=== PATIENT | male | born 1990 | race African-American/Black ===

== ENCOUNTER 2021-10-11 16:06 | Inpatient (IN) | payer MEDICAID, OTHER ==
[~2021-10-11] VITALS: Ht 182.9 cm; Wt 62.6 kg
[2021-10-11 20:23] LABS: BASOPHILS % 0.3 % (0.0-2.0); EOSINOPHILS % 0.4 % (0.0-5.0); HEMATOCRIT. 46.4 % (42.0-52.0); HEMOGLOBIN. 15.2 g/dL (14.0-18.0); MEAN CORPUSCULAR HEMOGLOBIN 28.3 pg (28.0-32.0); MEAN CORPUSCULAR VOLUME 86.5 fL (80.0-94.0); MEAN PLATELET VOLUME 9.2 fl (7.4-10.4); MONOCYTES % 7.5 % (2.0-8.0); NEUTROPHILS % 79.8 % (40.0-76.0); PLATELET 262 x1000/uL (130-400); RED BLOOD CELL COUNT 5.36 mill/uL (4.7-6.1); RED CELL DISTRIBUTION WIDTH 13.8 % (11.6-14.6)
[2021-10-11 20:27] LABS: CHLORIDE 93 mEq/L (98-107)
[2021-10-11 21:27] LABS: BETA HYDROXYBUTYRATE 1.4 mMol/L (0.0-0.3); ETHANOL BLOOD < 10 mg/dL
[2021-10-12 00:01] LABS: CLARITY URINE CLEAR (CLEAR); COLOR URINE YELLOW (YELLOW); KETONES URINE 3+ (NEGATIVE); LEUKOCYTE ESTERASE URINE NEGATIVE (NEGATIVE); NITRITE URINE NEGATIVE (NEGATIVE); OCCULT BLOOD URINE NEGATIVE (NEGATIVE); PH URINE 5.5 (4.5-8.0); PROTEIN URINE NEGATIVE (NEGATIVE); SPECIFIC GRAVITY URINE 1.039 (1.005-1.030); UROBILINOGEN URINE 0.2 E.U./dL (0.2-1.0)
[2021-10-12 00:18] LABS: *AMPHETAMINES SCREEN URINE NEGATIVE (NEGATIVE); *BARBITURATES SCREEN URINE NEGATIVE (NEGATIVE); *BENZODIAZEPINES SCREEN URINE NEGATIVE (NEGATIVE); *COCAINE SCREEN URINE NEGATIVE (NEGATIVE); CANNABINOID URINE SCREEN PRESUMTIVE POSITIVE (NEGATIVE); METHADONE URINE SCREEN NEGATIVE (NEGATIVE); OPIATES URINE SCREEN NEGATIVE (NEGATIVE); PHENCYCLIDINE URINE SCREEN NEGATIVE (NEGATIVE)
[2021-10-12] MEDS ORDERED: ONDANSETRON HCL 4MG/2ML INJ IV STA (00:24)
[2021-10-12] MEDS ORDERED: INSULIN REGULAR (HUMULIN R) 300UNITS/3ML VIAL IV ONE (00:30)
[2021-10-12] MEDS ORDERED: INSULIN REGULAR (HUMULIN R) 300UNITS/3ML VIAL IV NR (02:00)
[2021-10-12] MEDS ORDERED: ONDANSETRON HCL 4MG/2ML INJ IV NR (02:00)
[2021-10-12] MEDS ORDERED: SODIUM CHLORIDE 0.9% 1,000 ML IV ONE (03:00)
[2021-10-12] MEDS ORDERED: DIPHENHYDRAMINE 50MG/ML VIAL IV PRN (04:30)
[2021-10-12] MEDS ORDERED: CLONIDINE 0.1MG TABLET PO PRN (04:30)
[2021-10-12] MEDS ORDERED: INSULIN GLARGINE 100 UNITS/ML SUBCUT NR (04:30)
[2021-10-12] MEDS ORDERED: GUAIFENESIN 200MG/10ML SUGAR FREE UDC PO PRN (04:30)
[2021-10-12] MEDS ORDERED: ACETAMINOPHEN 650MG SUPP PR PRN ×2 (04:30)
[2021-10-12] MEDS ORDERED: MAGNESIUM/ALUMINUM HYDROXIDE/SIMETHICONE 30ML UDC PO PRN (04:30)
[2021-10-12] MEDS ORDERED: LORAZEPAM 0.5MG TABLET PO PRN (04:30)
[2021-10-12] MEDS ORDERED: ONDANSETRON HCL 4MG/2ML INJ IV PRN (04:30)
[2021-10-12] MEDS ORDERED: DEXTROSE 50% WATER 50ML SYRINGE IV PRN (04:30)
[2021-10-12] MEDS ORDERED: IPRATROPIUM/ALBUTEROL 0.5-3(2.5)MG/3ML NEB HHN PRN (04:30)
[2021-10-12] MEDS ORDERED: DOCUSATE SODIUM 100MG CAPSULE PO PRN (04:30)
[2021-10-12] MEDS ORDERED: ACETAMINOPHEN 325MG TABLET PO PRN ×2 (04:30)
[2021-10-12] MEDS ORDERED: LACTATED RINGERS 2,000 ML IV ONE ×2 (04:30→05:30)
[2021-10-12 06:28] LABS: HEMATOCRIT. 43.3 % (42.0-52.0); HEMOGLOBIN. 14.2 g/dL (14.0-18.0); MEAN CORPUSCULAR HEMOGLOBIN 28.5 pg (28.0-32.0); MEAN CORPUSCULAR VOLUME 86.7 fL (80.0-94.0); MEAN PLATELET VOLUME 9.9 fl (7.4-10.4); PLATELET 269 x1000/uL (130-400); RED BLOOD CELL COUNT 4.99 mill/uL (4.7-6.1); RED CELL DISTRIBUTION WIDTH 13.7 % (11.6-14.6)
[2021-10-12 06:40] LABS: CHLORIDE 92 mEq/L (98-107)
[2021-10-12 06:54] LABS: CREATINE KINASE 180 IU/L (39-308); HDL CHOLESTEROL 52 mg/dL (40-59); LDL CHOLESTEROL 104 mg/dL (5-100); PHOSPHORUS 5.3 mg/dL (2.5-4.9)
[2021-10-12 07:15] LABS: PLATELET ESTIMATE NORMAL
[2021-10-12] MEDS: INSULIN LISPRO 100 UNITS/ML SUBCUT SCH ×4 (08:24→23:55)
[2021-10-12] MEDS: BLOOD SUGAR DIAGNOSTIC STRIP TEST SCH ×4 (09:34→21:00)
[2021-10-12] MEDS: INSULIN GLARGINE 100 UNITS/ML SUBCUT SCH ×2 (11:38→22:00)
[2021-10-12] MEDS ORDERED: INSU100V3 SUBCUT ×2 (11:42→18:03)
[2021-10-12] MEDS ORDERED: NPH,100V SUBCUT ×2 (11:42→18:03)
[2021-10-12 12:00] VITALS: BP 125/74
[2021-10-12 13:31] VITALS: BP 135/77
[2021-10-12 14:34] LABS: CHLORIDE 99 mEq/L (98-107)
[2021-10-12 16:00] VITALS: BP 114/75
[2021-10-12] MEDS ORDERED: DIAZEPAM 5 MG TABLET PO PRN (18:15)
[2021-10-13] VITALS: BP 97/65
[2021-10-13 04:00] VITALS: BP 142/91
[2021-10-13] MEDS: INSULIN LISPRO 100 UNITS/ML SUBCUT SCH (07:12)
[2021-10-13 07:49] LABS: BASOPHILS % 0.5 % (0.0-2.0); EOSINOPHILS % 0.2 % (0.0-5.0); HEMATOCRIT. 38.4 % (42.0-52.0); HEMOGLOBIN. 13.1 g/dL (14.0-18.0); LYMPHOCYTES % 13.7 % (20.0-50.0); MEAN CORPUSCULAR HEMOGLOBIN 28.6 pg (28.0-32.0); MEAN CORPUSCULAR VOLUME 84.1 fL (80.0-94.0); MEAN PLATELET VOLUME 9.4 fl (7.4-10.4); MONOCYTES % 8.2 % (2.0-8.0); NEUTROPHILS % 77.4 % (40.0-76.0); PLATELET 253 x1000/uL (130-400); RED BLOOD CELL COUNT 4.57 mill/uL (4.7-6.1); RED CELL DISTRIBUTION WIDTH 13.4 % (11.6-14.6)
[2021-10-13 07:57] LABS: CHLORIDE 97 mEq/L (98-107)
[2021-10-13 08:00] VITALS: BP 130/85
[2021-10-13] MEDS: BLOOD SUGAR DIAGNOSTIC STRIP TEST SCH (08:02)
[2021-10-13 10:47] VITALS: BP 130/85
[2021-10-13] MEDS: INSULIN GLARGINE 100 UNITS/ML SUBCUT SCH (10:56)
== END 2021-10-13 12:15 | disposition home or self-care (01) | DRG 639 ==
LOC: ER 16:06 → 7WST 10-12 02:54 → CANBEDREQ 10-12 16:41
PROVIDERS: ADMIT Family Medicine Adult Medicine; ATTEND Family Medicine Adult Medicine
DX: E11.65 Type 2 diabetes mellitus with hyperglycemia (principal); I10 Essential (primary) hypertension; Z82.49 Family history of ischemic heart disease and other diseases of the circulatory system
CPT/HCPCS: 36415; 71045; 80048; 80053; 80061; 80305; 80320; 81003; 82010; 82550; 82962; 83036; 83735; 84100; 84443; 84484; 85025; 87070; 87430; 93005; 99285; J1815; J2405; G0480